=== PATIENT | male | born 1970 | race Caucasian/White ===

== ENCOUNTER 2024-10-02 21:30 | Emergency (ER) | payer MEDICAID ==
[2024-10-02] MEDS: Ketorolac 30 MG/ML SDV IM ONE (22:06)
[2024-10-02] MEDS: Orphenadrine 60 MG/2 ML Inj IM ONE (22:07)
[2024-10-02] MEDS: Lidocaine 4% Patch TOP PRN (23:36)
== END 2024-10-03 00:15 | disposition home or self-care (01) ==
LOC: CC.ED 21:30
DX: M54.50 Low back pain, unspecified (principal); G89.29 Other chronic pain; I10 Essential (primary) hypertension; I25.10 Atherosclerotic heart disease of native coronary artery without angina pectoris; M19.90 Unspecified osteoarthritis, unspecified site; Z79.899 Other long term (current) drug therapy; Z88.8 Allergy status to other drugs, medicaments and biological substances; Z79.82 Long term (current) use of aspirin; Z79.84 Long term (current) use of oral hypoglycemic drugs
CPT/HCPCS: 72131; 96372; 99283; 99284; A9270-GY; J1885; J2360